=== PATIENT | female | born 1945 | race Caucasian/White ===

== ENCOUNTER 2017-12-20 06:44 | Inpatient (IN) | payer MEDICARE, BC ==
[2017-12-20 07:19] LABS: #Basophils 0.1 thou/uL (0.0-0.2); #Eosinphils 0.2 thou/uL (0.0-0.7); #Lymphocytes 1.8 thou/uL (1.20-3.40); #Monocytes 0.6 thou/uL (0.11-0.59); #Neutrophils 3.8 thou/uL (1.40-6.50); %Basophils 1.1 % (0.0-1.0); %Eosinophils 2.5 % (0.0-10.0); %Lymphocytes 28.7 % (21.0-51.0); %Monocytes 8.7 % (0.0-10.0); Hemoglobin 15.9 g/dL (12.0-16.0); Mean Corpuscular HGB CONC 33.2 g/dL (32.0-36.0); Mean Corpuscular Hemoglobin 32.7 pg (27.0-31.0); Mean Corpuscular Volume 98.5 fl (81.0-99.0); Mean Platelet Volume 10.9 fL (7.4-10.4); Platelet Count 168 thou/uL (130-400); RBC Distribution Width 11.7 % (11.5-14.5); Red Blood Cell (RBC) Count 4.86 mill/uL (4.20-5.40); White Blood Cell (WBC) Count 6.4 thou/uL (4.8-10.8)
[2017-12-20] MEDS ORDERED: Diltiazem 125 MG/25 ML ONE ×2 (07:23→07:25)
[2017-12-20] MEDS ORDERED: Aspirin 81 mg Enteric Coated Tablet ONE (07:32)
[2017-12-20 07:34] LABS: ALT (SGPT) 17 U/L (8-55); AST (SGOT) 23 U/L (5-34); Albumin 4.7 g/dL (3.4-4.8); Alkaline Phosphatase 74 U/L (40-150); Anion Gap 14 mmol/L (10-20); BUN (Urea Nitrogen) 20 mg/dL (9.8-20.1); Bilirubin, Total 0.7 mg/dL (0.2-1.2); Calc. Creatinine Clearance 0 mL/min (70-130); Calcium 10.1 mg/dL (7.8-10.44); Carbon Dioxide 29 mmol/L (23-31); Chloride 100 mmol/L (98-107); Estimated GFR-MDRD 74; Globulin 3.6 g/dL (2.4-3.5); Glucose 121 mg/dL (83-110); Potassium 3.7 mmol/L (3.5-5.1); Protein, Total 8.3 g/dL (6.0-8.3); Sodium 139 mmol/L (136-145)
[2017-12-20 07:38] LABS: CKMB 1.7 ng/mL (0-6.6); Troponin I Less than 0.010 ng/mL (< 0.028)
[2017-12-20] MEDS ORDERED: Diltiazem 125 MG in Sodium Chloride 0.9% 100 ML IVPB SCH ×2 (07:45→13:30)
[2017-12-20 07:58] LABS: Prothrombin Time 12.9 SEC (12.0-14.7)
--- NOTE | 2017-12-20 08:17 | RAD ---
FRONTAL VIEW CHEST: Comparison: 07-27-17 Indication: Cardiac palpitation. FINDINGS: Cardiac silhouette is stable. No new consolidation, effusion, or discrete pneumothorax. Metallic clip s overly the right axilla. IMPRESSION: No focal consolidation. POS: SHARON
[2017-12-20 10:58] LABS: Troponin I Less than 0.010 ng/mL (< 0.028)
[2017-12-20] MEDS ORDERED: Ondansetron HCl/PF 4 MG/2 ML Vial IVP PRN (13:27)
[2017-12-20] MEDS ORDERED: Ondansetron ODT 4 MG TAB PO PRN (13:27)
[2017-12-20] MEDS ORDERED: Bisacodyl 5 MG TAB PO PRN (13:27)
[2017-12-20] MEDS ORDERED: Acetaminophen 650 MG Suppository PR PRN (13:27)
[2017-12-20] MEDS ORDERED: Acetaminophen 325 MG TAB PO PRN (13:27)
[2017-12-20 13:40] LABS: Troponin I Less than 0.010 ng/mL (< 0.028)
[2017-12-20 15:17] VITALS: BMI 150.4
--- NOTE | 2017-12-20 17:05 | HP ---
PRIMARY CARE PHYSICIAN: Gisele Coleman M.D. CHIEF COMPLAINT: Racing heart and near syncope. HISTORY OF PRESENT ILLNESS: This is a 72-year-old white female with a known history of atrial fibril lation resolved with ablation x2 10 years ago. She has had a couple of intermittent palpitations in recent months and then woke up this morning at 1:00 with her heart racing and racing was persistent. She had lightheadedness and thought she was going to pass out along with a little bit of nausea when ever she would sit or stand up and so she came into the emergency room. Patient does have a Holter m onitor in place that was given her by Dr. Donis when she reported the return of these intermittent symptoms. In the ER, the patient was found to be in atrial fibrillation with rapid ventricular rate . She was given diltiazem bolus and then drip at 5 mg per minute, instead of running at 150 beats pe r minute, she is now running around 100 beats per minute. She now has resolution of her dizziness wi th sitting up or standing as well. PAST MEDICAL HISTORY: 1. Atrial fibrillation. 2. Mitral valve prolapse. 3. Right-sided breast cancer. 4. Endometrial cancer. PAST SURGICAL HISTORY: 1. Cardiac ablation x2. 2. Appendectomy. 3. Total hysterectomy. 4. Right-sided lumpectomy x2 followed by right-sided mastectomy. PSYCHIATRIC HISTORY: None. SOCIAL HISTORY: No tobacco, alcohol, or illicit drug use. FAMILY HISTORY: Multiple family members with varying types of cancer. No family history of cardiac disease. ALLERGIES: Antihistamines. CURRENT MEDICATIONS: Aspirin 81 mg daily. REVIEW OF SYSTEMS: Constitutional: No fevers, no chills. Eyes: No double vision or blurred vision . ENT: No congestion, drainage or sore throat. Cardiovascular: See HPI. No chest pain. Pulmonar y: No coughing, wheezing or shortness of breath. Gastrointestinal: No abdominal pain, no vomiting, no diarrhea or constipation. Genitourinary: No dysuria or hematuria. Musculoskeletal: No muscle aches or joint pains. Skin: No rashes or lesions noted. Neurologic: No numbness, tingling or foca l weakness. She has lightheadedness as per HPI, but no vertigo. PHYSICAL EXAMINATION: VITAL SIGNS: Blood pressure 125/73, pulse 103, respirations 18, temperature 99.0, O2 sat 96% on room air. GENERAL: This is a well-developed, well-nourished, white female in no apparent distress. HEENT: Pupils equal, round, and reactive to light. Extraocular movements intact. No nystagmus. Or opharynx is clear without lesions, erythema or exudate. NECK: Supple, no lymphadenopathy, no thyroid nodules. CARDIOVASCULAR: Enlargement no JVD. HEART: Irregularly irregular rhythm, currently just minimal tachycardia, no murmurs, rubs or gallops . LUNGS: Clear to auscultation bilaterally, no wheezes, crackles or rhonchi. ABDOMEN: Soft, nontender to palpation, normoactive bowel sounds, no hepatosplenomegaly or other mass es. EXTREMITIES: No clubbing, cyanosis or edema. SKIN: No rashes or other lesions noted. NEUROLOGIC: Cranial nerves intact and equal bilaterally. No facial droop. She has intact strength in all extremities. LABORATORY: CBC within normal limits. Coagulation profile within normal limits. Complete metabolic panel was notable only for glucose of 121, globulin of 3.6. Cardiac marker set negative x3. Brain natriuretic peptide elevated at 160, magnesium normal at 2.1. EKG from earlier showed atrial fibrill ation with rapid ventricular response at 116 beats per minute, no ectopic beats. No significant ST s egments abnormalities. ASSESSMENT AND PLAN: Paroxysmal atrial fibrillation with return of atrial fibrillation with rapid ve ntricular rate, improved now with diltiazem, but still in atrial fibrillation rhythm. 1. We will continue diltiazem drip and we will consult Dr. Donis and Dr. Preston is sustainable design consultant and mi s office has been notified. We will admit patient to telemetry and monitor there, we will go ahead a nd start full dose Lovenox and will order an echocardiogram. We will defer other management to [facility] ology. 2. Gastrointestinal prophylaxis. We will put the patient on Pepcid twice a day. 3. Deep venous thrombosis prophylaxis. Patient is already on Lovenox. 4. Code status. I did discuss this with the patient. SHE IS A FULL CODE. Though she would not wan t resuscitation to be tried for very long if it was not successful. Should she be incapacitated, her niece, Elinor Reinoso will be her medical power of stone setter, her medical decision maker.
[2017-12-20] MEDS ORDERED: Metoprolol Tartrate 25 MG TAB PO SCH (18:00)
[2017-12-20] MEDS: Famotidine 20 MG TAB PO SCH (20:32)
[2017-12-20] MEDS: Docusate 100 MG CAP PO SCH (20:32)
--- NOTE | 2017-12-20 20:57 | CON ---
DATE OF CONSULTATION: 12/20/2017 REASON FOR CONSULTATION: Recurrent atrial fibrillation. HISTORY OF PRESENT ILLNESS: Ms. Ramirez is a very pleasant 72-year-old patient of Dr. Raghavendra Donis. The patient has a history of atrial fibrillation in the past she said initially diagnosed over 10 yea rs ago. She had atrial fibrillation ablation twice, she said about 6 years ago. She initially did v kathy well, but she has been having recurrent palpitations. Today, she had recurrent palpitations and felt dizzy and lightheaded like she might faint. She came to the emergency room. She was found to b e in atrial fibrillation with a rapid ventricular response. She was started on intravenous diltiazem . Her rate has now converted to sinus rhythm and sinus tachycardia. PAST MEDICAL HISTORY: 1. Atrial fibrillation. 2. Mitral valve prolapse. PAST SURGICAL HISTORY: 1. Cardiac ablation. 2. Appendectomy. 3. Hysterectomy. PSYCHIATRIC HISTORY: None. SOCIAL HISTORY: No tobacco or alcohol. FAMILY HISTORY: Multiple family members with cancer. ALLERGIES: ANTIHISTAMINES. MEDICATIONS: Aspirin 81 mg a day. REVIEW OF SYSTEMS: Constitutional: No significant weight gain or loss. Vision: No changes. Heari ng: No changes. Pulmonary: No cough or wheezing. Gastrointestinal: No nausea, vomiting, diarrhea . Skin: No rashes. Neurologic: No unilateral weakness or numbness. Psychiatric: No unusual depr ession or anxiety. PHYSICAL EXAMINATION: GENERAL: A pleasant patient in no distress, awake, and alert. VITAL SIGNS: Blood pressure 129/78, pulse 100, regular now. HEENT: Eyes: Sclerae nonicteric. Mouth mucous membranes moist. NECK: Supple, no lymphadenopathy. LUNGS: Clear, no wheezing, rales, or rhonchi. CARDIAC: Normal S1, normal S2. There is no murmur, rub, or gallop. ABDOMEN: Soft, nontender. EXTREMITIES: No clubbing or cyanosis. There is no edema. LABORATORY AND X-RAY FINDINGS: EKG initially showed atrial fibrillation with a rapid rate. Now, she is in sinus rhythm. ASSESSMENT: 1. Paroxysmal atrial fibrillation with a rapid rate. 2. She had previously had a good response to beta blockers. PLAN: 1. Add beta blockers. 2. Continue Cardizem tonight. 3. Lovenox has been ordered. 4. Echocardiogram probably to be done in the office. We will need to check on that. Consideration for other antiarrhythmic should be considered ? flecainide or other.
[2017-12-20] MEDS ORDERED: Enoxaparin Sodium 60 MG/0.6 ML SYRINGE SC SCH ×2 (21:00)
[2017-12-21 05:36] LABS: #Basophils 0.1 thou/uL (0.0-0.2); #Eosinphils 0.2 thou/uL (0.0-0.7); #Lymphocytes 2.8 thou/uL (1.20-3.40); #Monocytes 0.5 thou/uL (0.11-0.59); #Neutrophils 4.7 thou/uL (1.40-6.50); %Basophils 0.9 % (0.0-1.0); %Eosinophils 2.4 % (0.0-10.0); %Lymphocytes 34.1 % (21.0-51.0); %Monocytes 6.3 % (0.0-10.0); %Neutrophils 56.2 % (42.0-75.0); Hemoglobin 14.6 g/dL (12.0-16.0); Mean Corpuscular HGB CONC 33.8 g/dL (32.0-36.0); Mean Corpuscular Hemoglobin 33.3 pg (27.0-31.0); Mean Corpuscular Volume 98.5 fl (81.0-99.0); Mean Platelet Volume 11.4 fL (7.4-10.4); Platelet Count 159 thou/uL (130-400); RBC Distribution Width 11.8 % (11.5-14.5); Red Blood Cell (RBC) Count 4.39 mill/uL (4.20-5.40); White Blood Cell (WBC) Count 8.3 thou/uL (4.8-10.8)
[2017-12-21 05:51] LABS: Anion Gap 13 mmol/L (10-20); BUN (Urea Nitrogen) 14 mg/dL (9.8-20.1); Calc. Creatinine Clearance 74 mL/min (70-130); Calcium 9.5 mg/dL (7.8-10.44); Carbon Dioxide 26 mmol/L (23-31); Chloride 102 mmol/L (98-107); Estimated GFR-MDRD 81; Glucose 95 mg/dL (83-110); Potassium 3.9 mmol/L (3.5-5.1); Sodium 137 mmol/L (136-145)
[2017-12-21] MEDS: Docusate 100 MG CAP PO SCH (08:38)
[2017-12-21] MEDS: Famotidine 20 MG TAB PO SCH (08:39)
[2017-12-21] MEDS ORDERED: Apixaban 5 MG TAB PO SCH (09:00)
[2017-12-21] MEDS ORDERED: Metoprolol Tartrate 25 MG TAB PO SCH (09:00)
[2017-12-21] MEDS ORDERED: Flecainide 50 MG TAB PO SCH (09:00)
--- NOTE | 2017-12-21 12:25 | CON ---
DATE OF CONSULTATION: 12/21/2017 ELECTROPHYSIOLOGY CONSULTATION REFERRING PHYSICIAN: Dr. Donis I am seeing Ms. Ramirez at our [facility] telemetry floor as an electrophysiology oracle hyperion consultant. Her problems are: 1. Recurrent atrial arrhythmias. A. Prior history of paroxysmal atrial fibrillation requiring repeated left atrial ablation procedures by Dr. Harvey most recently 6 years ago. B. Late recurrence of an atypical atrial flutter on presentation this admit, spontaneous conversion back to sinus rhythm. C. Currently placed on flecainide and Eliquis. 2. History of valvular heart disease with mitral valve prolapse. A. 2-D echo from 06/19/2012 shows left atrial enlargement, mild MR, no thrombus. 3. Prior history of right-sided breast cancer and endometrial cancer, status post right-sided lumpec girish and mastectomy as well as total hysterectomy. ALLERGIES: ANTIHISTAMINES. MEDICATIONS: At home include aspirin 81 daily. SUBJECTIVE: Ms. Ramirez is here with symptoms of palpitations. She has been experiencing this for a w hile and was wearing a monitor as per Dr. Donis's office, but the heart rhythm was not persisting and she had lightheadedness as well associated with nausea. Eventually came to the ER. She has not completely passed out. She denies stroke-like symptoms. No fever, chills, cough noted. No PND, ort hopnea, no lower extremity at this time. She has no angina, no CHF like symptoms. The rest of the 1 2 point systems was unremarkable, apart from noted above. PAST MEDICAL HISTORY: As above. She has history of appendectomy as well. SOCIAL HISTORY: Denies smoking, ETOH, or drug use. FAMILY HISTORY: Significant for cancer running in the family, no heart disease. OBJECTIVE DATA: VITAL SIGNS: Blood pressure is 125/56, heart rate 16, temperature 97.9 degrees Fahrenheit, heart rat e 68. GENERAL: This is an alert and oriented woman in no apparent distress. NECK: Supple. Jugular veins are not distended. CHEST: Coarse, no crackles. CARDIOVASCULAR: Heart sounds are regular rate and rhythm. No murmur or gallop. ABDOMEN: Benign. Bowel sounds positive. EXTREMITIES: Lower extremities without edema, clubbing or cyanosis. NEUROLOGIC: Patient is nonfocal. MUSCULOSKELETAL: No joint swelling or deformities. SKIN: Without rash. DATABASE: The EKG on 12/20/2017 reveals an atypical atrial flutter, ventricular rates are 116 beats per minute. Subsequent EKG and telemetry strips reveal sinus rhythm. I reviewed prior EKGs from 200 6 when she had true coarse atrial fibrillation on EKG. LABORATORY DATA: White blood cell count 8.3, hemoglobin 14.6, platelet count is 159. INR 1.0, sodiu m 137, potassium 3.9, BUN 40, creatinine 0.71. BNP is 160. Troponin I was less than 0.01. ASSESSMENT AND PLAN: Ms. Ramirez is a pleasant 72-year-old woman with prior history of paroxysmal atri al fibrillation, status post 2 ablation procedures which seems to have kept her in good rhythm since 2012 her last ablation. Now she has had recurrent atrial arrhythmia. She appears to be in atypical atrial flutter. She spontaneously terminated the arrhythmia and she was placed on Eliquis and flecai nide. At this point she continues to do well in sinus rhythm. We discussed the future treatment options. Continued antiarrhythmic therapy with anticoagulation is certainly feasible. I do think anticoagulation is reasonable in this lady, although especially now w ith her recurrence, although her DEMETRIO VAS score is about 2, hence her age and gender. She does not h ave history of coronary artery disease. I feel like continued flecainide is a reasonable choice. Sh e might need additional AV jelena blocking agents as well. On the other hand, also it is a consideration to consider redo ablation procedures. I discussed the option and she is interested. We will discuss further on her followup visit which she should see us in the next 4-6 weeks. Thank you again for letting me participate in the care of this patient.
--- NOTE | 2017-12-21 14:29 | DIS ---
DATE OF ADMISSION: 12/20/2017 DATE OF DISCHARGE: 12/21/2017 ADMITTING DIAGNOSIS: Acute atrial fibrillation with rapid ventricular rate. DISCHARGE DIAGNOSIS: Acute atrial fibrillation with rapid ventricular rate. SECONDARY DIAGNOSES: 1. History of mitral valve prolapse. 2. History of right breast cancer. 3. History of endometrial cancer. HISTORY OF PRESENT ILLNESS AND HOSPITAL COURSE: In brief, this is a 72-year-old white female with a known history of atrial fibrillation, resolved with ablation 10 years ago. She had a couple of inter mittent palpitations in recent months and then woke up in the morning at 1:00 a.m. with racing heart rate and she had lightheadedness. She was going to pass out, but she managed to come to the ER. The patient was given Cardizem bolus, then followed by Cardizem drip which did bring down her heart rate and associated dizziness. The patient was seen by Cardiology, Dr. Preston, who planned to start the patient on metoprolol which the patient did respond very well and she was also started on flecainide by Dr. Donis who has seen the other day and recommended a followup with him in 1-2 weeks. The pat ient's rhythm was back to normal sinus on the day of discharge. She denied having any chest pain. N o dizziness, no palpitations. The patient is also started on Eliquis, which the patient would be con tinuing. The patient is discharged home in stable condition. PHYSICAL EXAMINATION: VITAL SIGNS: Blood pressures are 117/56, heart rate of 74, respiratory rate 18, saturation 98%. GENERAL: The patient is moderately built and moderately nourished, does not appear to be in acute di stress. CARDIOVASCULAR: S1 and S2 normal. No murmurs, rubs, or gallops. LUNGS: Bilateral air entry was equal. No wheezing, no crackles. ABDOMEN: Soft, nontender. No guarding, no rebound tenderness. Bowel sounds are normal. MUSCULOSKELETAL: No calf tenderness. No pedal edema. No joint tenderness. No joint swelling. SKIN: No cyanosis, no edema, no rash, no pallor. NEUROLOGIC: Cranial examination II through XII intact. No focal deficits were noted. HOME MEDICATIONS: 1. Aspirin 81 mg daily. 2. Eliquis 5 mg p.o. b.i.d. 3. Flecainide 50 mg p.o. q. 12 hours. 4. Metoprolol XL 25 mg p.o. daily. DISCHARGE INSTRUCTIONS: Continue activity as tolerated. Advised to follow up with primary care phys ching in 1-2 weeks. Advised to follow up with Dr. Donis in 2 weeks. Advised to follow up with Dr Phoebe Sorto in 4-6 weeks. I spent 35 minutes of this patient on the day of discharge.
[2017-12-21 15:23] VITALS: BP 128/60; TEMP 97.7
--- NOTE | 2018-01-27 11:44 | EKG ---
Test Reason : Blood Pressure : / mmHG Vent. Rate : 116 BPM Atrial Rate : 116 BPM P-R Int : 000 ms QRS Dur : 080 ms QT Int : 332 ms P-R-T Axes : 000 007 027 degrees QTc Int : 461 ms Atrial fibrillation with rapid ventricular response Cannot rule out Anterior infarct , age undetermined Abnormal ECG Confirmed by JELANI OSORIO, KELLIE Alanis ([id number]), editor news FABIEN SPIVEY ([id number]) on 01/27/2018 11:43:51 AM Referred By: Confirmed By:KELLIE PALOMARES MD
== END 2017-12-21 15:34 | disposition home or self-care (01) | DRG 310 ==
LOC: ERS 06:44 → ERHOLD 08:40 → 2NO 14:18
PROVIDERS: ADMIT Emergency Medicine; ATTEND Emergency Medicine
DX: I48.0 Paroxysmal atrial fibrillation (principal); I34.0 Nonrheumatic mitral (valve) insufficiency; I34.1 Nonrheumatic mitral (valve) prolapse; Z85.3 Personal history of malignant neoplasm of breast; Z85.42 Personal history of malignant neoplasm of other parts of uterus; I48.4 Atypical atrial flutter
CPT/HCPCS: 36415; 71045; 80048; 80053; 82553; 83735; 83880; 84484; 85025; 85610; 85730; 93005; 93306; 96365; 96366; 96376; J1650; J7050

== ENCOUNTER 2018-07-26 14:11 | Outpatient (CLI) | payer MEDICARE, BC | END 2018-07-26 14:12 | disposition home or self-care (01) | LOC: BICMAMMO 14:11 | PROVIDERS: ATTEND Family Medicine | DX: Z12.31 Encounter for screening mammogram for malignant neoplasm of breast (principal); Z85.3 Personal history of malignant neoplasm of breast | CPT/HCPCS: 77063; 77067 ==

== ENCOUNTER 2018-12-06 11:08 | Inpatient (IN) | payer MEDICARE, BC ==
[2018-12-06] MEDS ORDERED: Diltiazem 125 MG/25 ML ONE (11:31)
[2018-12-06] MEDS ORDERED: Sodium Chloride 0.9% 100 ML ONE (11:31)
[2018-12-06 11:42] LABS: #Basophils 0.1 thou/uL (0.0-0.2); #Eosinphils 0.1 thou/uL (0.0-0.7); #Lymphocytes 1.6 thou/uL (1.20-3.40); #Monocytes 0.5 thou/uL (0.11-0.59); #Neutrophils 7.1 thou/uL (1.40-6.50); %Basophils 0.8 % (0.0-1.0); %Eosinophils 0.7 % (0.0-10.0); %Lymphocytes 17.3 % (21.0-51.0); %Monocytes 4.8 % (0.0-10.0); %Neutrophils 76.4 % (42.0-75.0); Hemoglobin 15.1 g/dL (12.0-16.0); INR-International Normal Ratio 1.2; Mean Corpuscular HGB CONC 32.8 g/dL (32.0-36.0); Mean Corpuscular Volume 97.4 fL (78.0-98.0); Mean Platelet Volume 11.6 fL (7.4-10.4); PTT 28.7 SEC (22.9-36.1); Platelet Count 182 thou/uL (130-400); Prothrombin Time 15.6 SEC (12.0-14.7); RBC Distribution Width 11.2 % (11.5-14.5); Red Blood Cell (RBC) Count 4.73 mill/uL (4.20-5.40); White Blood Cell (WBC) Count 9.3 thou/uL (4.8-10.8)
--- NOTE | 2018-12-06 11:45 | RAD ---
CHEST 1 VIEW: Date: 12/06/18 HISTORY: Chest pain. COMPARISON: 12/20/17. FINDINGS: Cardiac silhouette is magnified by projection. Patient is slightly rotated leftward. No confluent air space consolidation or evidence of pneumothorax. Metallic clips overlie the right axilla. IMPRESSION: No active cardiopulmonary abnormalities are demonstrated. POS: GABO
[2018-12-06 11:59] LABS: ALT (SGPT) 16 U/L (8-55); AST (SGOT) 22 U/L (5-34); Albumin 4.3 g/dL (3.4-4.8); Alkaline Phosphatase 74 U/L (40-150); Anion Gap 16 mmol/L (10-20); BUN (Urea Nitrogen) 17 mg/dL (9.8-20.1); Bilirubin, Total 0.7 mg/dL (0.2-1.2); CK (CPK) 64 U/L (29-168); Calc. Creatinine Clearance 0 mL/min (70-130); Calcium 9.8 mg/dL (7.8-10.44); Carbon Dioxide 27 mmol/L (23-31); Chloride 102 mmol/L (98-107); Estimated GFR-MDRD 64; Globulin 3.5 g/dL (2.4-3.5); Glucose 139 mg/dL (83-110); Potassium 3.8 mmol/L (3.5-5.1); Protein, Total 7.8 g/dL (6.0-8.3); Sodium 141 mmol/L (136-145)
[2018-12-06] MEDS ORDERED: Diabetic Tussin 200 MG/10 ML UDCUP PO PRN (12:30)
[2018-12-06] MEDS ORDERED: Senokot S 8.6-50 MG TAB PO PRN (12:30)
[2018-12-06] MEDS ORDERED: Sodium Chloride 0.65% Nasal 44 ML BOT EA NARE PRN (12:30)
[2018-12-06] MEDS ORDERED: Benzonatate 100 MG CAP PO PRN (12:30)
[2018-12-06] MEDS ORDERED: Acetaminophen 325 MG TAB PO PRN (12:30)
[2018-12-06] MEDS ORDERED: Loratadine 10 MG TAB PO PRN (12:30)
[2018-12-06] MEDS ORDERED: hydrALAZINE 20 MG/ML VIAL SLOW IVP PRN (12:30)
[2018-12-06] MEDS ORDERED: Bisacodyl 5 MG TAB PO PRN (12:30)
[2018-12-06] MEDS ORDERED: Calcium Carbonate 500 MG ChewTAB PO PRN (12:30)
[2018-12-06] MEDS ORDERED: Ondansetron PF 4 MG/2 ML Vial IVP PRN (12:30)
--- NOTE | 2018-12-06 15:04 | CON ---
DATE OF CONSULTATION: 12/06/2018 ELECTROPHYSIOLOGY CONSULTATION REASON FOR CONSULTATION: Atrial fibrillation with RVR. REFERRING PHYSICIAN: Dr. Desir. HISTORY OF PRESENT ILLNESS: Ms. Ramirez is a pleasant woman known to our practice for history of persistent atrial arrhythmias. She has undergone 2 prior ablations initially on 12/14/[address] Harvey, but most recently in July [address] Hernandez. She has done well since her most recent ablation and not had any suspected or documented recurrences of her arrhythmias. She was taken off flecainide approximately 1 month ago, but now unfortunately is experiencing recurrence with RVR prompting her presentation to the emergency room. A 12-lead on arrival showed atrial fibrillation with RVR with rates recorded up to 170 beats per minute. She was started on IV diltiazem, which converted her back to sinus rhythm, but now she has been somewhat on the bradycardic side with heart rates between 45 and 60 beats per minute. She is asymptomatic. She is feeling well. She was feeling short of breath and aware of her heart racing some palpitations before she converted. Currently, she does not have any complaints and is eager to go home. PAST MEDICAL HISTORY: 1. Mitral valve disease with moderate mitral regurgitation and prolapse, status post atrial dilation. 2. Atrial fibrillation, persistent, status post 2 prior ablations on 12/14/2011 and July 2018. 3. Chronic flecainide suppression for arrhythmia management. 4. CHADS-VASc score greater than or equal to 2, currently on Eliquis for stroke prophylaxis. ALLERGIES: NONE. SOCIAL HISTORY: Denies alcohol, tobacco, or illicit drug use. FAMILY HISTORY: Positive for cancer, but no heart disease. HOME MEDICATIONS: 1. Metoprolol 25 mg p.o. q.a.m. and 12.5 mg q.p.m. 2. Eliquis 5 mg b.i.d. PHYSICAL EXAMINATION: VITAL SIGNS: Pulse 50, blood pressure 109/60, respirations 14, oxygen is 96% on room air, and respirations are 14. GENERAL: The patient is well groomed and well nourished. She is alert and oriented, in no apparent distress. NECK: Supple without jugular venous distention. LUNGS: Clear to auscultation bilaterally. CARDIOVASCULAR: Heart rate is irregularly irregular, but somewhat slow. PMI is nondisplaced. There is no murmur, rub, or gallop. ABDOMEN: Benign without palpable masses. There are positive bowel sounds throughout. EXTREMITIES: Warm and dry to touch without clubbing, cyanosis, or edema. NEUROLOGIC: Grossly intact and nonfocal. Gait was not assessed. DATABASE: Telemetry and EKG were all personally reviewed, reflecting rapid atrial arrhythmia with ventricular rate up to 170 beats per minute, currently in sinus bradycardia with heart rates as low as 45 beats per minute, but generally between 50 and 55, which is a baseline for her. IMPRESSION: 1. Persistent atrial arrhythmias with redo ablation in July 2018, now with late recurrence of atrial arrhythmias. 2. Elevated CHADS-VASc score, but requires lifelong anticoagulation following her most recent ablation with left atrial appendage isolation. 3. Mild bradycardia, asymptomatic. RECOMMENDATIONS: Ms. Ramirez is feeling much better since she converted with diltiazem. She is asymptomatic with her bradycardia and is known to have asymptomatic bradycardia by her clinic notes. We will see her back for close followup in 2 to 4 weeks. We will have her restart flecainide 50 mg b.i.d. when she is available to pick pulling machine tender this medication for arrhythmia suppression. With her bradycardia, I would abstain from further AV jelena blocking agents for the next 24 hours, but she may resume low-dose metoprolol Monday morning. Recommend metoprolol tartrate 12.5 mg b.i.d. Thank you for allowing us to participate in the care of this patient. Job ID: [id number]
--- NOTE | 2018-12-06 15:04 | HP ---
PRIMARY CARE PHYSICIAN: Gisele Coleman MD PRIMARY INSPECTORS AND REGULATORY OFFICERS: Raghavendra Donis MD CHIEF COMPLAINT: Palpitation. HISTORY OF PRESENTING ILLNESS: Ms. Ramirez is a 73-year-old very pleasant female with past medical history of atrial fibrillation, requiring anticoagulation as well as multiple ablations: Most recently in July 2018, who presented to the emergency room with above-mentioned complaint. History is mainly obtained by the patient herself. Ms. Ramirez presented to the ER this morning for palpitations. She reported that since the last ablation in [place] by Dr. Rankin: She has been in normal sinus rhythm. She used to take flecainide, but she has been taken off of it, and she is currently only on metoprolol and Eliquis at home. She has been feeling fine up until last night and her symptoms of palpitations came back. She was feeling very dizzy this morning and presented to the ER. In the emergency room, she was found to be in atrial fibrillation with RVR with heart rate in the 130s to 140s. She was given a bolus of Cardizem and converted to sinus rhythm and has been maintaining in sinus bradycardia since then. She is now being admitted for further evaluation and care. Her blood pressure has been otherwise stable. After Cardizem, her systolic blood pressure is in the 90s with diastolic in the 50s. She denies any other recent illnesses. She reports that she had an echocardiogram done in July in [place]. She is compliant with her medications. History of atrial fibrillation or flutter, status post ablation multiple times, at least three times up until now. History of mitral valve prolapse. History of right-sided breast cancer, status post surgery. History of endometrial cancer, status post hysterectomy. PAST SURGICAL HISTORY: 1. Cardiac ablation x3. 2. Appendectomy. 3. Hysterectomy. 4. Right-sided lumpectomy x2, followed by right-sided mastectomy. PSYCHIATRIC HISTORY: None. SOCIAL HISTORY: No history of drug, tobacco, or alcohol abuse. FAMILY HISTORY: Multiple family members with various type of cancers. No family history of cardiac disease. ALLERGIES: INCLUDE ANTIHISTAMINES. CURRENT HOME MEDICATION: As listed in the ER records, 1. Eliquis 5 mg p.o. b.i.d. 2. Metoprolol tartrate 25 mg in the morning and 12.5 mg in the evening. CODE STATUS: Do not resuscitate or intubate. We discussed with the patient in detail who verbalizes understanding of the code status. REVIEW OF SYSTEMS: A 12-point review of system is done, it is negative except for those mentioned in the history and physical. LABORATORY DATA: CBC is rather unremarkable. She had mild neutrophilia at 76%. PT, PTT, INR are normal. Serum chemistries, glucose 139, otherwise unremarkable. Creatine kinase and troponin are normal. Chest x-ray does not show any evidence of active pulmonary vascular congestion. No infiltrate by my review. PHYSICAL EXAMINATION: VITAL SIGNS: Upon presentation, heart rate 102, saturating 98% on room air. Most recent blood pressure 94/51, and heart rate of 53, respirations 16, temperature 98.5. GENERAL: No acute distress. Awake, alert, and oriented x3. Lying comfortably in bed. Family is at bedside. HEENT EXAMINATION: Mucous membrane is moist and pink. No oropharyngeal exudate or erythema. Head is normocephalic, atraumatic. Pupils are equal and reactive to light and accommodation. Extraocular movement intact. NECK: Supple without any lymphadenopathy, JVD, or bruit. CHEST: Clear to auscultation without any wheezing, rales or rhonchi. CARDIOVASCULAR: Rate and rhythm is regular without any murmurs, rubs, or gallops. ABDOMEN: Soft, nontender, nondistended with positive bowel sounds. EXTREMITIES: Free of any cyanosis, clubbing, or edema. NEUROLOGICAL EXAMINATION: Nonfocal. SKIN: Free of any rashes or bruises. Feels warm and dry to touch. PSYCHIATRIC: Normal affect. IMPRESSION AND PLAN: 1. Recurrent atrial fibrillation with rapid ventricular response. At this time, the patient has converted back to normal sinus rhythm. Most likely, she will either need an ablation or consultation for procedures like ligation of left atrial appendage or Watchman device. We will request consultation with arts manager, Dr. Sorto, who has seen her in the past. At this time, we will continue her on Eliquis. Hold the metoprolol as she is exhibiting significant sinus bradycardia, but restart if her heart rate starts to climb up again. She is otherwise currently asymptomatic and hemodynamically stable. Further management as per the recommendations from Cardiology and Electrophysiology. She will be n.p.o. after midnight in anticipation for any cardiac procedures. 2. History of breast cancer and endometrial cancer, status post surgical treatment. 3. History of mitral valve prolapse. 4. Code status: Do not resuscitate or intubate. DISPOSITION: Ms. Ramirez is currently being admitted to the hospital with recurrent atrial fibrillation with rapid ventricular rate. Further management will depend upon the recommendations from Cardiology and EP doctors, as well as her hospital course. Echocardiogram is currently not being ordered as the recent one was done in July. We will try to get the records from Dr. Rankin's office. Job ID: [id number]
[2018-12-06] MEDS ORDERED: Apixaban 5 MG TAB PO SCH (21:00)
--- NOTE | 2018-12-08 05:47 | DIS ---
DATE OF ADMISSION: 12/06/2018 DATE OF DISCHARGE: 12/06/2018 BRIEF HOSPITAL SUMMARY: Ms. Ramirez was admitted by myself from the emergency room for complaints of atrial fibrillation and RVR with known history of same. She was given diltiazem in the ER with conversion to spontaneous rhythm. Electrophysiology and Cardiology were consulted. The patient was seen by Dr. Sorto. The patient was in the ER hold because of nonavailability of the room, and unfortunately the patient either was discharged from the emergency room by the ER physician or either by Cardiology or Electrophysiology. The patient was not discharged by myself or any of my colleagues. There is no notification and there is no [facility] record of her discharge either. She does not have any discharge orders from myself or my colleagues. I am not sure if the patient was discharged or she signed out AMA. Nothing is mentioned in the ER records either. It does not seem like that the patient was ever received a room upstairs, but seems like that the patient left from the emergency room without emergency room notifying any of the [employer]. Job ID: [id number]
--- NOTE | 2018-12-08 20:53 | EKG ---
Test Reason : Blood Pressure : / mmHG Vent. Rate : 060 BPM Atrial Rate : 060 BPM P-R Int : 296 ms QRS Dur : 074 ms QT Int : 436 ms P-R-T Axes : 078 012 -09 degrees QTc Int : 436 ms Sinus rhythm with marked sinus arrhythmia with 1st degree A-V block Low voltage QRS Cannot rule out Anterior infarct , age undetermined Abnormal ECG Confirmed by BHUPINDER OSORIO, LUX Nelson (9), senior editor FABIEN SPIVEY ([id number]) on 12/08/2018 8:52:45 PM Referred By: Confirmed By:LUX ROE MD
--- NOTE | 2018-12-08 20:55 | EKG ---
Test Reason : Blood Pressure : / mmHG Vent. Rate : 118 BPM Atrial Rate : 150 BPM P-R Int : 000 ms QRS Dur : 082 ms QT Int : 294 ms P-R-T Axes : 000 005 -07 degrees QTc Int : 412 ms Atrial fibrillation with rapid ventricular response Cannot rule out Anterior infarct , age undetermined Left axis deviation Abnormal ECG Confirmed by BHUPINDER OSORIO, LUX Nelson (9), health editor FABIEN SPIVEY ([id number]) on 12/08/2018 8:55:23 PM Referred By: Confirmed By:LUX ROE MD
== END 2018-12-06 16:25 | disposition home or self-care (01) | DRG 310 ==
LOC: ERS 11:08 → OBSVTOIN 12:50 → ERHOLD 12:50
PROVIDERS: ADMIT Internal Medicine; ATTEND Internal Medicine
DX: I48.1 Persistent atrial fibrillation (principal); Z66 Do not resuscitate; R00.1 Bradycardia, unspecified; Z79.01 Long term (current) use of anticoagulants; Z85.3 Personal history of malignant neoplasm of breast; Z85.89 Personal history of malignant neoplasm of other organs and systems; Z90.710 Acquired absence of both cervix and uterus; Z80.9 Family history of malignant neoplasm, unspecified
CPT/HCPCS: 36415; 71045; 80053; 82550; 84484; 85025; 85610; 85730; 93005; 94760; 96361; 96374; J7050

== ENCOUNTER 2019-07-29 11:46 | Outpatient (CLI) | payer MEDICARE, BC ==
--- NOTE | 2019-07-29 14:40 | MMO ---
Bilateral MAMMO Bilat Screen [facility]. CLINICAL HISTORY: Patient is 73 years old and is seen for screening. The patient has no family history of breast cancer. The patient has a history of uterine cancer. The patient has a history of right Mastectomy at age 60 - malignant - RIGHT MASECTOMY. VIEWS: The views performed were: bilateral craniocaudal with tomosynthesis and bilateral mediolateral oblique with tomosynthesis. FILMS COMPARED: The present examination has been compared to a prior imaging study performed at [facility] on 07/26/2018. This study has been interpreted with the assistance of computer-aided detection. MAMMOGRAM FINDINGS: There are scattered fibroglandular densities. There are stable benign appearing calcifications seen in the left breast. There are no suspicious masses, calcifications or areas of architectural distortion. There are no suspicious masses, suspicious calcifications, or new areas of architectural distortion. IMPRESSION: THERE IS NO MAMMOGRAPHIC EVIDENCE OF MALIGNANCY. A ROUTINE FOLLOW-UP MAMMOGRAM IN 1 YEAR IS RECOMMENDED. THE RESULTS OF THIS EXAM WERE SENT TO THE PATIENT. ACR BI-RADS Category 2 - Benign finding MAMMOGRAPHY NOTE: 1. A negative mammogram report should not delay a biopsy if a dominant of clinically suspicious mass is present. 2. Approximately 10% to 15% of breast cancers are not detected by mammography. 3. Adenosis and dense breasts may obscure an underlying neoplasm. Reported by: TUSHAR ESPARZA MD Electonically Signed: [id number]
== END 2019-07-29 11:47 | disposition home or self-care (01) ==
LOC: BICMAMMO 11:46
PROVIDERS: ATTEND Family Medicine
DX: Z12.31 Encounter for screening mammogram for malignant neoplasm of breast (principal); Z90.11 Acquired absence of right breast and nipple; Z85.42 Personal history of malignant neoplasm of other parts of uterus
CPT/HCPCS: 77063; 77067

== ENCOUNTER 2020-08-07 12:27 | Outpatient (CLI) | payer BC, MEDICARE ==
--- NOTE | 2020-08-07 14:43 | MMO ---
Bilateral MAMMO Bilat Screen [facility]. CLINICAL HISTORY: Patient is 74 years old and is seen for screening. The patient has no family history of breast cancer. The patient has a history of uterine cancer. The patient has a history of right Mastectomy at age 60 - malignant - RIGHT MASECTOMY. VIEWS: The views performed were: bilateral craniocaudal with tomosynthesis and bilateral mediolateral oblique with tomosynthesis. FILMS COMPARED: The present examination has been compared to prior imaging studies performed at [facility] on 07/26/2018 and 07/29/2019. This study has been interpreted with the assistance of computer-aided detection. MAMMOGRAM FINDINGS: There are scattered fibroglandular densities. There are benign appearing calcifications in the left breast. There are no suspicious masses, suspicious calcifications, or new areas of architectural distortion. IMPRESSION: THERE IS NO MAMMOGRAPHIC EVIDENCE OF MALIGNANCY. A ROUTINE FOLLOW-UP MAMMOGRAM IN 1 YEAR IS RECOMMENDED. THE RESULTS OF THIS EXAM WERE SENT TO THE PATIENT. ACR BI-RADS Category 2 - Benign finding MAMMOGRAPHY NOTE: 1. A negative mammogram report should not delay a biopsy if a dominant of clinically suspicious mass is present. 2. Approximately 10% to 15% of breast cancers are not detected by mammography. 3. Adenosis and dense breasts may obscure an underlying neoplasm. Reported by: NUVIA ALCARAZ MD Electonically Signed: [id number]
== END 2020-08-07 12:28 | disposition home or self-care (01) ==
LOC: BICMAMMO 12:27
PROVIDERS: ATTEND Family Medicine
DX: Z12.31 Encounter for screening mammogram for malignant neoplasm of breast (principal); Z85.41 Personal history of malignant neoplasm of cervix uteri; Z85.3 Personal history of malignant neoplasm of breast; Z90.11 Acquired absence of right breast and nipple
CPT/HCPCS: 77063; 77067

== ENCOUNTER 2021-08-09 11:50 | Outpatient (CLI) | payer MEDICARE, BC | END 2021-08-09 11:51 | disposition home or self-care (01) | LOC: BICMAMMO 11:50 | PROVIDERS: ATTEND Family Medicine | DX: Z12.31 Encounter for screening mammogram for malignant neoplasm of breast (principal); Z90.11 Acquired absence of right breast and nipple; Z85.42 Personal history of malignant neoplasm of other parts of uterus | CPT/HCPCS: 77063; 77067 ==

== ENCOUNTER 2022-08-11 09:51 | Outpatient (CLI) | payer MEDICARE, BC | END 2022-08-11 09:52 | disposition home or self-care (01) | LOC: BICMAMMO 09:51 | PROVIDERS: ATTEND Family Medicine | DX: Z12.31 Encounter for screening mammogram for malignant neoplasm of breast (principal); Z90.11 Acquired absence of right breast and nipple; Z85.3 Personal history of malignant neoplasm of breast; Z85.42 Personal history of malignant neoplasm of other parts of uterus | CPT/HCPCS: 77063; 77067 ==

== ENCOUNTER 2024-10-17 12:00 | Outpatient (CLI) | payer MEDICARE, BC | END 2024-10-17 15:00 | disposition home or self-care (01) | LOC: BICMAMMO 12:00 | PROVIDERS: ATTEND Family Medicine | DX: Z12.31 Encounter for screening mammogram for malignant neoplasm of breast (principal); Z85.42 Personal history of malignant neoplasm of other parts of uterus; Z90.11 Acquired absence of right breast and nipple; Z98.890 Other specified postprocedural states | CPT/HCPCS: 77063; 77067 ==

== ENCOUNTER 2024-12-23 15:17 | Emergency (ER) | payer MEDICARE, BC ==
[2024-12-23 16:00] LABS: #Basophils 0.03 10x3/uL (0.0-0.2); %Basophils 0.3 % (0.0-1.0); %Eosinophils 0.6 % (0.0-10.0); %Lymphocytes 21.6 % (21.0-51.0); %Monocytes 6.5 % (0.0-10.0); %Neutrophils 70.8 % (42.0-75.0); Hematocrit 42.7 % (36.0-47.0); Hemoglobin 14.9 g/dL (12.0-16.0); Mean Corpuscular HGB CONC 34.9 g/dL (32.0-36.0); Mean Corpuscular Hemoglobin 32.1 pg (27.0-31.0); Mean Platelet Volume 12.3 fL (7.4-10.4); Platelet Count 215 10x3/uL (130-400); RBC Distribution Width 12.5 % (11.5-14.5); Red Blood Cell (RBC) Count 4.64 mill/uL (4.20-5.40)
[2024-12-23] MEDS ORDERED: dilTIAZem 125 MG/25 ML SDV ONE (16:09)
[2024-12-23] MEDS ORDERED: Metoprolol Tartrate 5 MG (5 mL) VIAL ONE (16:14)
[2024-12-23 16:20] LABS: Troponin I Less than 0.010 ng/mL (< 0.028)
[2024-12-23 16:23] LABS: INR-International Normal Ratio 1.1; PTT 27.5 sec (22.9-36.1); Prothrombin Time 14.5 sec (12.0-14.7)
[2024-12-23 16:24] LABS: ALT (SGPT) 13 U/L (Less than 34); AST (SGOT) 37 U/L (11-34); Albumin 3.8 g/dL (3.1-4.5); Alkaline Phosphatase 71 U/L (40-110); Anion Gap 16 mmol/L (10-20); BUN (Urea Nitrogen) 15 mg/dL (9.8-20.1); Bilirubin, Total 0.6 mg/dL (0.3-1.2); Calc. Creatinine Clearance 0 mL/min (70-130); Calcium 9.3 mg/dL (7.8-10.44); Carbon Dioxide 25 mmol/L (23-31); Chloride 103 mmol/L (98-107); Estimated GFR 89; Globulin 4.2 g/dL (2.4-3.5); Glucose 115 mg/dL (83-110); Potassium 4.3 mmol/L (3.5-5.1); Sodium 140 mmol/L (136-145)
[2024-12-23 16:34] LABS: Magnesium 2.1 mg/dL (1.6-2.6)
== END 2024-12-23 17:53 | disposition home or self-care (01) ==
LOC: ERS 15:17
DX: I48.91 Unspecified atrial fibrillation (principal); Z79.01 Long term (current) use of anticoagulants
CPT/HCPCS: 71045; 80053; 83735; 84443; 84484; 85025; 85610; 85730; 93005; 96374

== ENCOUNTER 2025-06-30 11:02 | Outpatient (CLI) | payer MEDICARE, BC | END 2025-06-30 11:03 | disposition home or self-care (01) | LOC: BICMAMMO 11:02 | PROVIDERS: ATTEND Family Medicine | DX: M81.0 Age-related osteoporosis without current pathological fracture (principal); Z78.0 Asymptomatic menopausal state; M85.89 Other specified disorders of bone density and structure, multiple sites | CPT/HCPCS: 77080 ==